=== PATIENT | male | born 1990 | race Caucasian/White ===

== ENCOUNTER 2018-07-09 21:35 | Emergency (ER) | payer SELFPAY ==
[~2018-07-09] VITALS: Ht 177.8 cm; Wt 70.0 kg
[2018-07-09 21:42] VITALS: BP 117/82
[2018-07-09] MEDS ORDERED: AMOX500C2 PO (22:58)
[2018-07-09] MEDS ORDERED: ibuprofen tablet 400 MG TABLET PO ONE (23:05)
== END 2018-07-10 00:20 | disposition home or self-care (01) ==
LOC: ER 21:36
DX: S02.5XXA Fracture of tooth (traumatic), initial encounter for closed fracture (principal); Z79.2 Long term (current) use of antibiotics; X58.XXXA Exposure to other specified factors, initial encounter; Y93.89 Activity, other specified; Y92.89 Other specified places as the place of occurrence of the external cause; Y99.8 Other external cause status
CPT/HCPCS: 99283

== ENCOUNTER 2019-01-31 08:54 | Emergency (ER) | payer SELFPAY ==
[~2019-01-31] VITALS: Ht 177.8 cm; Wt 66.6 kg
[2019-01-31 09:16] VITALS: BP 112/79
[2019-01-31 09:41] LABS: BASOPHILS % (AUTO) 0.1 % (0-1); EOSINOPHILS % (AUTO) 0.1 % (0-6); HEMATOCRIT 47.1 % (42.0-52.0); HEMOGLOBIN 16.2 g/dl (14.0-17.9); LYMPHOCYTES # (AUTO) 0.3 X10'3 (1.1-4.8); LYMPHOCYTES % (AUTO) 2.9 % (21-51); MEAN CORPUSCULAR HEMOGLOBIN 30.4 PG (27.0-31.0); MEAN CORPUSCULAR HGB CONC 34.4 g/dL (33.0-36.5); MEAN CORPUSCULAR VOLUME 88.4 FL (78-98); MEAN PLATELET VOLUME 8.6 FL (7.4-10.4); MONOCYTES # (AUTO) 0.3 X10'3 (0-0.9); MONOCYTES % (AUTO) 2.5 % (2-12); NEUTROPHILS # (AUTO) 9.5 X10'3 (1.8-7.7); NEUTROPHILS % (AUTO) 94.4 % (42-75); PLATELET COUNT 177 X10'3 (140-440); RED BLOOD COUNT 5.33 X10'6 (4.70-6.10); RED CELL DISTRIBUTION WIDTH 12.9 % (11.5-14.5); WHITE BLOOD COUNT 10.1 X10'3 (4.5-11.0)
[2019-01-31 09:56] LABS: ALANINE AMINOTRANSFERASE 27 U/L (12-78); ALBUMIN 4.8 G/DL (3.4-5.0); ALBUMIN/GLOBULIN RATIO 1.4 (1.1-1.5); ALKALINE PHOSPHATASE 76 IU/L (46-116); ANION GAP 11 (8-16); ASPARTATE AMINO TRANSFERASE 18 U/L (10-37); BILIRUBIN,TOTAL 1.7 MG/DL (0.1-1.0); BLOOD UREA NITROGEN 20 MG/DL (7-18); BUN/CREATININE RATIO 20.6 (5.4-32.0); CHLORIDE 104 MMOL/L (99-107); CREATININE 0.97 MG/DL (0.60-1.10); GLUCOSE 123 MG/DL (70-104); LIPASE 92 U/L (73-393); POTASSIUM 4.3 MMOL/L (3.5-5.1); SODIUM 141 MMOL/L (135-145); TOTAL CARBON DIOXIDE 26.2 MMOL/L (24-32); TOTAL PROTEIN 8.3 G/DL (6.4-8.2); eGFR > 90 ML/MIN
[2019-01-31 10:08] LABS: CALCIUM 9.6 MG/DL (8.5-10.1)
--- NOTE | 2019-01-31 10:21 | NUR ---
PT STATES HE DOESN'T HAVE THE URGE TO PEE AT THIS TIME. EDUCATED THE NEED FOR UA WHEN ABLE.
[2019-01-31] MEDS ORDERED: ONDA4TAB6 PO (11:40)
== END 2019-01-31 11:56 | disposition home or self-care (01) ==
LOC: ER 08:54
DX: K52.9 Noninfective gastroenteritis and colitis, unspecified (principal); R11.2 Nausea with vomiting, unspecified; R10.13 Epigastric pain; R10.11 Right upper quadrant pain
CPT/HCPCS: 36415; 76700; 80053; 83690; 85025; 85610; 99284

== ENCOUNTER 2024-06-12 13:57 | Outpatient (CLI) | payer OTHER ==
[~2024-06-12 13:57] MED LIST: ONDA4TAB6 PO
== END 2024-06-12 23:59 | disposition home or self-care (01) ==
LOC: MRI 13:57
PROVIDERS: ATTEND Student in an Organized Health Care Education/Training Program
DX: M25.522 Pain in left elbow (principal); M77.8 Other enthesopathies, not elsewhere classified
CPT/HCPCS: 73221